=== PATIENT | female | born 1980 | race Caucasian/White ===

== ENCOUNTER 2017-07-06 12:15 | Outpatient (CLI) | payer BC | END 2017-07-06 12:16 | disposition home or self-care (01) | LOC: BICULT 12:15 | PROVIDERS: ATTEND Family Medicine | DX: Q83.1 Accessory breast (principal) | CPT/HCPCS: 76999; 77066; G0279 ==

== ENCOUNTER 2018-04-27 17:43 | Inpatient (IN) | payer BC ==
[2018-04-27] MEDS ORDERED: Dexamethasone 10 MG/ML VIAL ONE (18:31)
[2018-04-27] MEDS ORDERED: Ibuprofen 200 MG TAB ONE (18:31)
[2018-04-27] MEDS ORDERED: Sodium Chloride For Inhalation 0.9% 3 ML NEB ONE (18:35)
--- NOTE | 2018-04-27 18:59 | RAD ---
RADIOGRAPH CHEST 2 VIEWS: Date: 04/27/18 Time: 6:33 p.m. HISTORY: 38-year-old female with cough and fever. COMPARISON: None. FINDINGS: There is a small focal infiltrate in the right mid lung zone seen on the frontal review. It is near t he junction between the superior segment of right lower lobe and posterior segment of right upper lob e. The rest of the lungs are clear. No pleural effusion. Cardiomediastinal silhouette is normal. IMPRESSION: Right sided bronchopneumonia. JEREMIAH [] POS: JIN
[2018-04-27 19:38] LABS: #Basophils 0.1 thou/uL (0.0-0.2); #Monocytes 0.6 thou/uL (0.11-0.59); #Neutrophils 4.6 thou/uL (1.40-6.50); %Eosinophils 0.2 % (0.0-10.0); %Lymphocytes 16.2 % (21.0-51.0); %Monocytes 8.9 % (0.0-10.0); %Neutrophils 73.7 % (42.0-75.0); Hemoglobin 13.8 g/dL (12.0-16.0); Mean Corpuscular HGB CONC 33.6 g/dL (32.0-36.0); Mean Corpuscular Hemoglobin 29.4 pg (27.0-31.0); Mean Corpuscular Volume 87.5 fL (78.0-98.0); Mean Platelet Volume 9.2 fL (7.4-10.4); Platelet Count 139 thou/uL (130-400); Red Blood Cell (RBC) Count 4.68 mill/uL (4.20-5.40); White Blood Cell (WBC) Count 6.3 thou/uL (4.8-10.8)
[2018-04-27 19:42] LABS: ALT (SGPT) 54 U/L (8-55); AST (SGOT) 39 U/L (5-34); Albumin 4.3 g/dL (3.5-5.0); Alkaline Phosphatase 80 U/L (40-150); Anion Gap 14 mmol/L (10-20); BUN (Urea Nitrogen) 10 mg/dL (7.0-18.7); Bilirubin, Total 0.6 mg/dL (0.2-1.2); Calc. Creatinine Clearance 0 mL/min (70-130); Calcium 9.6 mg/dL (7.8-10.44); Carbon Dioxide 22 mmol/L (22-29); Chloride 105 mmol/L (98-107); Estimated GFR-MDRD 84; Globulin 3.3 g/dL (2.4-3.5); Glucose 118 mg/dL (70-105); Potassium 3.8 mmol/L (3.5-5.1); Protein, Total 7.6 g/dL (6.0-8.3); Sodium 137 mmol/L (136-145)
[2018-04-27] MEDS ORDERED: Ibuprofen 200 MG TAB PO PRN (21:47)
[2018-04-27] MEDS ORDERED: Acetaminophen 325 MG TAB PO PRN (21:50)
[2018-04-27] MEDS ORDERED: Calcium Carbonate 500 MG ChewTAB PO PRN (21:50)
[2018-04-27] MEDS ORDERED: Eucerin (Mineral Oil/Petrolatum,White) 30 gm Jar TOP PRN (21:51)
[2018-04-27] MEDS ORDERED: Chloraseptic Spray 180 ml Bottle PO PRN (21:51)
[2018-04-27] MEDS ORDERED: Mag-Al 1200 mg/1200 mg/30 ML UDCUP PO PRN (21:51)
[2018-04-27] MEDS ORDERED: guaiFENesin ER 600 MG TAB PO SCH (22:00)
--- NOTE | 2018-04-27 22:09 | HP ---
PRIMARY CARE PHYSICIAN: Kayley Sanchez MD CHIEF COMPLAINT: Cough with low-grade fever of 3 weeks' duration. HISTORY OF PRESENT ILLNESS: The patient is a 38-year-old female who presented to the emergency room with above complaints. Approximately 3 weeks ago, the patient started having cough along with fever that progressively got worse. She completed 10 days of doxycycline. After completion of doxycycline, her symptoms got worse. She was evaluated by primary care physician 2 days ago and was started on Omnicef. She continued to have fever up to 100 degrees Fahrenheit. Overall, she started feeling worse. She denies significant shortness of breath or wheezing. The cough was mainly dry with scanty production. She denies recent immobilization travel. She denies any sick contacts, nausea, vomiting, diarrhea, or skin rash. She is allergic to amoxicillin which causes rash. No dysuria, hematuria, or urgency reported. PAST MEDICAL HISTORY: Seasonal allergies. PAST SURGICAL HISTORY: 1. in 2009 and 2013. 2. [place] teeth extraction in 1998. ALLERGIES: THE PATIENT IS ALLERGIC TO AMOXICILLIN WITH CAUSES RASH. CURRENT HOME MEDICATIONS: Reviewed with the patient and none. FAMILY HISTORY: Father with heart disease. Mother with hypertension. SOCIAL HISTORY: The patient currently lives at home. Denies any smoking, alcohol, or drug use. She is . REVIEW OF SYSTEMS: All other review of systems reviewed and were found negative. PHYSICAL EXAMINATION: VITAL SIGNS: In the emergency room, showed temperature 100.6, respirations of 18, pulse rate of 95 with blood pressure of 114/77, O2 saturation 95% on room air. GENERAL: A 38-year-old female in mild distress due to repeated coughing. HEENT: Head; atraumatic, normocephalic. Sclerae anicteric. Bilateral tonsillar exudate noted. No other oral lesion except for minimal erythema over the pharynx. NECK: Supple. No JVD. No carotid bruit. LUNGS: Showed scattered rhonchi with rales at the right base, otherwise the lungs were symmetrical. No wheezing or rhonchi in other areas noted. No accessory muscle use. HEART: S1, S2 present. Regular rate and rhythm. No murmur, rubs, or gallops appreciated. ABDOMEN: Soft bowel sounds present. No rebound or guarding. EXTREMITIES: No edema or calf tenderness. NEUROLOGY: Grossly nonfocal. Moves all 4 extremities. PSYCHIATRY: Alert, awake, and oriented x3. SKIN: Warm and dry. LYMPH NODES: No palpable lymph nodes in the neck. PERIPHERAL VASCULAR: Radial pulses are palpable bilaterally. MUSCULOSKELETAL: No joint swelling or tenderness. LABORATORY FINDINGS: WBC 6.3 with neutrophil of 73.7%, lymphocyte of 16.2, hemoglobin 13.8. Chemistry showed sodium 137, potassium 3.8, chloride 105, bicarb 22, BUN 10, creatinine 0.7. Chest x-ray by my review showed bronchopneumonia at the right base. Strep screen was negative. Cultures are pending. Influenza testing is pending at this time. IMPRESSION: 1. Sepsis due to right-sided pneumonia due to ?Pneumococcus with acute tonsillitis. 2. Seasonal allergies. 3. Chronic kidney disease, stage 2. 4. Dehydration. PLAN: 1. The patient will be monitored on the medical floor. We will start her on ceftriaxone with azithromycin. We will consult Infectious Disease due to penicillin allergy. We will add Mucinex and other p.r.n. medications. Gentle IV hydration. 2. The patient will require 2 to 3 days for stabilization. Will check Strep Pneumonia urinary antigen. Job ID: [id number] [facility]
[2018-04-27] MEDS: Sodium Chloride 0.9% 1,000 ML IV SCH (23:05)
[2018-04-27] MEDS: Benzonatate 100 MG CAP PO PRN (23:05)
[2018-04-27] MEDS: Azithromycin 500 MG in Sodium Chloride 0.9% 250 ML 250 ML IVPB SCH (23:06)
[2018-04-27] MEDS: cefTRIAXone\\ROCEPHIN 2 GM in Sodium Chloride 0.9% 100 ML IVPB SCH (23:06)
[2018-04-27] MEDS: Cepastat Lozenges 1 LOZ PO PRN (23:10)
[2018-04-28 00:21] VITALS: BMI 30.1
[2018-04-28] MEDS: guaiFENesin ER 600 MG TAB PO SCH ×2 (08:19→21:34)
--- NOTE | 2018-04-28 09:55 | PDOC.PN ---
- Subjective Encounter Start Date: 04/28/18 Encounter Start Time: 08:45 -: old records requested/rev pt has cough, no chest pain, no fever Patient seen and examined. No new complaints. No overnight events - Objective Resuscitation Status - Order Detail: 04/27/18 21:50 Resuscitation Status Routine Resuscitation Status: FULL: Full Resuscitation MAR Reviewed: Yes Vital Signs & Weight: Vital Signs (12 hours) Temp Pulse Resp BP Pulse Ox 04/28/18 08:11 98.3 F 72 18 113/72 95 04/28/18 04:00 98.3 F 90 16 107/67 96 04/28/18 00:16 94 L 04/28/18 00:00 98.3 F 77 18 99/64 92 L Weight Weight 197 lb 15.602 oz I&O: 04/27/18 04/28/18 04/29/18 05:59 06:59 06:59 Intake Total Balance Result Diagrams: 04/27/18 19:20 04/27/18 19:20 Radiology Reviewed by me: Yes (chest xray reviewed) Phys Exam - Physical Examination Constitutional: NAD HEENT: PERRLA, moist MMs, sclera anicteric Neck: no JVD, supple Respiratory: no wheezing, no rales, no rhonchi Cardiovascular: RRR, no significant murmur, no rub Gastrointestinal: soft, non-tender, no distention, positive bowel sounds Musculoskeletal: no edema, pulses present Neurological: non-focal, normal sensation, moves all 4 limbs Lymphatic: no nodes Psychiatric: normal affect, A&O x 3 Skin: no rash, normal turgor Dx/Plan (1) Community acquired bacterial pneumonia Code(s): J15.9 - UNSPECIFIED BACTERIAL PNEUMONIA Status: Acute (2) Obesity (BMI 30.0-34.9) Code(s): E66.9 - OBESITY, UNSPECIFIED Status: Chronic - Plan cont current plan of care, continue antibiotics * continue rocephin and azithromycin * continue mucinex * continue IVF * add solumderol 20 mg IV q 8 hourly * medication reviewed as below * symptomatic treatment. * ID consulted Review of Systems - Review of Systems Eyes: negative: Pain, Vision Change, Conjunctivae Inflammation, Eyelid Inflammation, Redness, Other ENT: negative: Ear Pain, Ear Discharge, Nose Pain, Nose Discharge, Nose Congestion, Mouth Pain, Mouth Swelling, Throat Pain, Throat Swelling, Other Respiratory: Cough. negative: Dry, Shortness of Breath, Hemoptysis, SOB with Excertion, Pleuritic Pain, Sputum, Wheezing Cardiovascular: negative: chest pain, palpitations, orthopnea, paroxysmal nocturnal dyspnea, edema, light headedness, other Gastrointestinal: negative: Nausea, Vomiting, Abdominal Pain, Diarrhea, Constipation, Melena, Hematochezia, Other Genitourinary: negative: Dysuria, Frequency, Incontinence, Hematuria, Retention , Other Musculoskeletal: negative: Neck Pain, Shoulder Pain, Arm Pain, Back Pain, Hand Pain, Leg Pain, Foot Pain, Other Skin: negative: Rash, Lesions, Michael, Bruising, Other - Medications/Allergies Allergies/Adverse Reactions: Allergies Allergy/AdvReac Type Severity Reaction Status Date / Time amoxicillin [Amoxicillin] Allergy Rash Verified 04/28/18 00:38 Medications: Current Medications Acetaminophen (Tylenol) 650 mg PO Q4H PRN PRN Reason: Headache/Fever/Mild Pain (1-3) Al Hydroxide/Mg Hydroxide (Maalox) 30 ml PO Q6H PRN PRN Reason: Heartburn or Indigestion Albuterol/Ipratropium (Duoneb) 3 ml NEB [id number] PRN PRN Reason: SOB &/or Wheezing Benzonatate (Tessalon) 100 mg PO TID PRN PRN Reason: Cough Last Admin: 04/27/18 23:05 Dose: 100 mg Calcium Carbonate (Tums) 1,000 mg PO Q4H PRN PRN Reason: Heartburn or Indigestion Guaifenesin (Mucinex) 600 mg PO Q12HR [facility] Last Admin: 04/28/18 08:19 Dose: 600 mg Azithromycin 500 mg/ Sodium (Chloride) 250 mls @ 250 mls/hr IVPB Q24HR [facility] Last Admin: 04/27/18 23:06 Dose: 250 mls Ceftriaxone Sodium 2 gm/ (Sodium Chloride) 100 mls @ 200 mls/hr IVPB Q24HR [facility] Last Admin: 04/27/18 23:06 Dose: 100 mls Sodium Chloride (Normal Saline 0.9%) 1,000 mls @ 75 mls/hr IV .[id number] [facility] Stop: 04/29/18 22:01 Last Admin: 04/27/18 23:05 Dose: 1,000 mls Ibuprofen (Motrin) 400 mg PO Q6H PRN PRN Reason: Pain Mineral Oil/White Petrolatum (Eucerin Cream) 0 gm TOP BIDPRN PRN PRN Reason: Dry Skin Phenol (Chloraseptic [place] 180 Ml Bot) 0 ml PO BIDPRN PRN PRN Reason: Sore Throat Sodium Chloride (Flush - Normal Saline) 10 ml IVF Q12HR [facility] Last Admin: 04/28/18 08:20 Dose: Not Given Sodium Chloride (Flush - Normal Saline) 10 ml IVF PRN PRN PRN Reason: Saline Flush Throat Lozenges (Cepastat Lozenges) 1 francisco PO Q2H PRN PRN Reason: Sore Throat Last Admin: 04/27/18 23:10 Dose: 1 francisco
[2018-04-28] MEDS: methylPREDNISolone Sod Succ 40 MG VIAL IVP SCH ×2 (10:39→17:16)
[2018-04-28 10:40] LABS: Strep pneumo Urine Ag NEGATIVE (NEGATIVE)
[2018-04-28] MEDS: Cepastat Lozenges 1 LOZ PO PRN (10:40)
[2018-04-28] MEDS: Sodium Chloride 0.9% 1,000 ML IV SCH (11:26)
--- NOTE | 2018-04-28 16:11 | CT ---
CT SINUSES WITHOUT CONTRAST: Indication: Sinusitis without improvement. Comparison: None. FINDINGS: Paranasal sinuses are clear. Osteomeatal units are patent. Visualized nasal cavity appears within nor mal limits. The osseous nasal septum is midline. No acute osseous abnormality is evident. Mastoid air cells are clear. Visualized intracranial contents are within normal limits. Visualized orbits appear s within normal limits. IMPRESSION: No significant paranasal sinus disease. POS: [facility]
--- NOTE | 2018-04-28 21:32 | CON ---
DATE OF CONSULTATION: 04/28/2018 REASON FOR CONSULTATION: Respiratory symptoms. HISTORY OF PRESENT ILLNESS: A 38-year-old has a history of chronic rhinitis and since March has had worsening of her upper respiratory symptoms with cough, has been managed with various outpatient interventions and mostly with oral antimicrobials and more recently was started on topical steroids for nasal area plus antihistamines, but for the past few days has noticed worsening of cough and some low-grade temperature elevation, some headaches, nasal obstipation, some hearing issues. No visual symptoms change. Mild sore throat. No dental pain. No back pain. No chest pain. No dyspnea. No abdominal pain or diarrhea. No genitourinary symptoms. No joint symptoms. No skin disorder. No neurological symptoms. MEDICAL HISTORY: Rhinitis/allergies. PAST SURGICAL HISTORY: and wisdom teeth extraction. ALLERGIES: AMOXICILLIN WITH RASH. FAMILY HISTORY: Hypertension, heart disease. 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 Never smoker. No drug use. . CURRENT MEDICATIONS: 1. Maalox. 2. DuoNeb. 3. Azithromycin. 4. Tessalon. 5. Ceftriaxone. 6. Medrol. PHYSICAL EXAMINATION: VITAL SIGNS: T-max 99, blood pressure 113/72, pulse 72, respirations 18, O2 saturation 95%. SKIN: Peripheral IV access. No Rodriguez catheter. LYMPHATICS: No lymphadenopathy. HEENT: Ocular movements, conjugate. Obstructed nasal passages, moderately to markedly obstructed. Oral cavity is normal. Teeth are in very good shape. NECK: Supple. No jugular vein distention. No carotid bruits. LUNGS: With scattered expiratory rhonchi and wheezing. No crackles. HEART: Normal. ABDOMEN: Soft, not distended or tender. No ascites. No bladder distention. EXTREMITIES: No joint inflammatory activity, moves extremities equally. NEURO: Cognitive function appears to be intact. LABORATORY DATA: CBC is pretty unremarkable except for mild lymphocytopenia. Chemistry, normal except for mild elevation of glucose and AST of 39. Serology with strep pneumo antigen negative. Microbiology with group A strep screen negative. Influenza A and B antigen test negative. Chest x-ray with small focal infiltrate, right mid lung zone. ASSESSMENT: Allergic rhinitis or perennial rhinitis with now exacerbation of cough, some low-grade temperature elevation, abnormal chest x-ray with subsegmental infiltrate in the right lung. DISCUSSION: Differential diagnosis includes chronic rhinosinusitis with superimposed acute sinusitis and now respiratory tract infection versus viral infection with sinusitis and lower respiratory tract involvement. Check respiratory virus PCR panel. Continue antimicrobials. Consider switch transition to inhaled steroids instead of intravenous steroids. Atypical mycobacterial pathogens, nocardiosis, and Cryptococcus neoformans would be another concern, but those are much less likely in her situation at this point in time. Autoimmune syndromes, malignancy unlikely. Aspiration of foreign body unlikely. We will check a CT of sinus to complete workup and check also immunoglobulin quantitation to rule out common variable immune deficiency. Job ID: [id number]
[2018-04-28] MEDS: Benzonatate 100 MG CAP PO PRN (21:35)
[2018-04-28] MEDS: cefTRIAXone\\ROCEPHIN 2 GM in Sodium Chloride 0.9% 100 ML IVPB SCH (21:41)
[2018-04-28] MEDS ORDERED: guaiFENesin/DM ER PO SCH (21:45)
[2018-04-28] MEDS: Azithromycin 500 MG in Sodium Chloride 0.9% 250 ML 250 ML IVPB SCH (23:20)
[2018-04-29] MEDS: methylPREDNISolone Sod Succ 40 MG VIAL IVP SCH ×3 (01:30→17:17)
[2018-04-29] MEDS: guaiFENesin/DM ER PO SCH ×2 (08:43→20:03)
[2018-04-29 09:19] LABS: #Lymphocytes 1.1 thou/uL (1.20-3.40); #Monocytes 0.5 thou/uL (0.11-0.59); #Neutrophils 4.2 thou/uL (1.40-6.50); %Basophils 0.2 % (0.0-1.0); %Eosinophils 0.3 % (0.0-10.0); %Lymphocytes 19.3 % (21.0-51.0); %Neutrophils 72.2 % (42.0-75.0); Mean Corpuscular HGB CONC 32.9 g/dL (32.0-36.0); Mean Corpuscular Hemoglobin 29.4 pg (27.0-31.0); Mean Corpuscular Volume 89.3 fL (78.0-98.0); Mean Platelet Volume 9.6 fL (7.4-10.4); Platelet Count 198 thou/uL (130-400); RBC Distribution Width 11.2 % (11.5-14.5); Red Blood Cell (RBC) Count 4.78 mill/uL (4.20-5.40); White Blood Cell (WBC) Count 5.9 thou/uL (4.8-10.8)
[2018-04-29 09:40] LABS: ALT (SGPT) 40 U/L (8-55); AST (SGOT) 28 U/L (5-34); Albumin 4.1 g/dL (3.5-5.0); Alkaline Phosphatase 68 U/L (40-150); Anion Gap 13 mmol/L (10-20); BUN (Urea Nitrogen) 9 mg/dL (7.0-18.7); Bilirubin, Total 0.3 mg/dL (0.2-1.2); CRP (Inflammatory) 1.96 mg/dL (= or < 0.5); Calc. Creatinine Clearance 161 mL/min (70-130); Calcium 9.4 mg/dL (7.8-10.44); Carbon Dioxide 21 mmol/L (22-29); Chloride 108 mmol/L (98-107); Estimated GFR-MDRD Greater than 90; Globulin 3.3 g/dL (2.4-3.5); Glucose 122 mg/dL (70-105); Potassium 4.1 mmol/L (3.5-5.1); Protein, Total 7.4 g/dL (6.0-8.3); Sodium 138 mmol/L (136-145)
--- NOTE | 2018-04-29 09:41 | RAD ---
CHEST 2 VIEWS: HISTORY: Followup pneumonia. COMPARISON: 04/27/2018. FINDINGS: Small patchy area of alveolar parenchymal density in the right mid lung zone and right perihilar layne on, evidence for pneumonia showing some improvement from the prior 04/27 study. No new process. IMPRESSION: Minimally improving alveolar parenchymal process in the right mid lung zone, evidence for improving r ight middle lung zone pneumonia. Consider another followup examination in several weeks to document complete clearing. POS: [facility]
--- NOTE | 2018-04-29 11:22 | PDOC.PN ---
- Subjective Encounter Start Date: 04/29/18 Encounter Start Time: 09:30 Patient seen and examined. No new complaints. No overnight events - Objective Resuscitation Status - Order Detail: 04/27/18 21:50 Resuscitation Status Routine Resuscitation Status: FULL: Full Resuscitation MAR Reviewed: Yes Vital Signs & Weight: Vital Signs (12 hours) Temp Pulse Resp BP Pulse Ox 04/29/18 08:52 98.2 F 57 L 16 99/61 95 04/29/18 02:53 93 L Weight Weight 197 lb 15.602 oz I&O: 04/28/18 04/29/18 04/30/18 06:59 06:59 06:59 Intake Total 970 Balance 970 Result Diagrams: 04/29/18 08:51 04/29/18 08:51 Phys Exam - Physical Examination Constitutional: NAD HEENT: PERRLA, moist MMs, sclera anicteric Neck: no JVD, supple Respiratory: no wheezing, no rales, no rhonchi Cardiovascular: RRR, no significant murmur, no rub Gastrointestinal: soft, non-tender, no distention, positive bowel sounds Musculoskeletal: no edema, pulses present Neurological: non-focal, normal sensation, moves all 4 limbs Lymphatic: no nodes Psychiatric: normal affect, A&O x 3 Skin: no rash, normal turgor Dx/Plan (1) Community acquired bacterial pneumonia Code(s): J15.9 - UNSPECIFIED BACTERIAL PNEUMONIA Status: Acute (2) Obesity (BMI 30.0-34.9) Code(s): E66.9 - OBESITY, UNSPECIFIED Status: Chronic - Plan cont current plan of care, continue antibiotics * continue one more day antibiotics * will plan for discharge tomorrow * medication reviewed as below * symptomatic treatment. Review of Systems - Review of Systems ENT: negative: Ear Pain, Ear Discharge, Nose Pain, Nose Discharge, Nose Congestion, Mouth Pain, Mouth Swelling, Throat Pain, Throat Swelling, Other Respiratory: Cough. negative: Dry, Shortness of Breath, Hemoptysis, SOB with Excertion, Pleuritic Pain, Sputum, Wheezing Cardiovascular: negative: chest pain, palpitations, orthopnea, paroxysmal nocturnal dyspnea, edema, light headedness, other Gastrointestinal: negative: Nausea, Vomiting, Abdominal Pain, Diarrhea, Constipation, Melena, Hematochezia, Other Genitourinary: negative: Dysuria, Frequency, Incontinence, Hematuria, Retention , Other Musculoskeletal: negative: Neck Pain, Shoulder Pain, Arm Pain, Back Pain, Hand Pain, Leg Pain, Foot Pain, Other Skin: negative: Rash, Lesions, Michael, Bruising, Other - Medications/Allergies Allergies/Adverse Reactions: Allergies Allergy/AdvReac Type Severity Reaction Status Date / Time amoxicillin [Amoxicillin] Allergy Rash Verified 04/28/18 00:38 Medications: Current Medications Acetaminophen (Tylenol) 650 mg PO Q4H PRN PRN Reason: Headache/Fever/Mild Pain (1-3) Al Hydroxide/Mg Hydroxide (Maalox) 30 ml PO Q6H PRN PRN Reason: Heartburn or Indigestion Albuterol/Ipratropium (Duoneb) 3 ml NEB [id number] PRN PRN Reason: SOB &/or Wheezing Benzonatate (Tessalon) 100 mg PO TID PRN PRN Reason: Cough Last Admin: 04/28/18 21:35 Dose: 100 mg Calcium Carbonate (Tums) 1,000 mg PO Q4H PRN PRN Reason: Heartburn or Indigestion Guaifenesin/Dextromethorphan (Mucinex Dm) 1 tab PO Q12HR [facility] Last Admin: 04/29/18 08:43 Dose: 1 tab Azithromycin 500 mg/ Sodium (Chloride) 250 mls @ 250 mls/hr IVPB Q24HR [facility] Last Admin: 04/28/18 23:20 Dose: 250 mls Ceftriaxone Sodium 2 gm/ (Sodium Chloride) 100 mls @ 200 mls/hr IVPB Q24HR [facility] Last Admin: 04/28/18 21:41 Dose: 100 mls Ibuprofen (Motrin) 400 mg PO Q6H PRN PRN Reason: Pain Methylprednisolone Sodium Succinate (Solu-Medrol) 20 mg IVP 0200,1000,1800 [facility] Last Admin: 04/29/18 08:43 Dose: 20 mg Mineral Oil/White Petrolatum (Eucerin Cream) 0 gm TOP BIDPRN PRN PRN Reason: Dry Skin Phenol (Chloraseptic [place] 180 Ml Bot) 0 ml PO BIDPRN PRN PRN Reason: Sore Throat Sodium Chloride (Flush - Normal Saline) 10 ml IVF Q12HR [facility] Last Admin: 04/29/18 08:45 Dose: 10 ml Sodium Chloride (Flush - Normal Saline) 10 ml IVF PRN PRN PRN Reason: Saline Flush Throat Lozenges (Cepastat Lozenges) 1 francisco PO Q2H PRN PRN Reason: Sore Throat Last Admin: 04/28/18 10:40 Dose: 1 francisco
[2018-04-29] MEDS: cefTRIAXone\\ROCEPHIN 2 GM in Sodium Chloride 0.9% 100 ML IVPB SCH (20:03)
[2018-04-29] MEDS: Azithromycin 500 MG in Sodium Chloride 0.9% 250 ML 250 ML IVPB SCH (21:32)
[2018-04-30] MEDS: methylPREDNISolone Sod Succ 40 MG VIAL IVP SCH ×2 (02:01→09:51)
[2018-04-30 08:10] VITALS: BP 112/74; TEMP 98.2
[2018-04-30] MEDS: guaiFENesin/DM ER PO SCH (08:27)
--- NOTE | 2018-04-30 09:49 | PDOC.PN ---
- Subjective Encounter Start Date: 04/30/18 Encounter Start Time: 07:20 Patient seen and examined. No new complaints. No overnight events - Objective Resuscitation Status - Order Detail: 04/27/18 21:50 Resuscitation Status Routine Resuscitation Status: FULL: Full Resuscitation MAR Reviewed: Yes Vital Signs & Weight: Vital Signs (12 hours) Temp Pulse Resp BP BP Pulse Ox 04/30/18 08:00 98.2 F 56 L 18 112/74 97 04/30/18 00:33 99.6 F 79 20 136/63 92 L Weight Weight 197 lb 15.602 oz I&O: 04/29/18 04/30/18 05/01/18 06:59 06:59 06:59 Intake Total 970 360 Balance 970 360 Result Diagrams: 04/29/18 08:51 04/29/18 08:51 Phys Exam - Physical Examination Constitutional: NAD HEENT: PERRLA, moist MMs, sclera anicteric Neck: no JVD, supple Respiratory: no wheezing, no rales, no rhonchi Cardiovascular: RRR, no significant murmur, no rub Gastrointestinal: soft, non-tender, no distention, positive bowel sounds Musculoskeletal: no edema, pulses present Neurological: non-focal, normal sensation, moves all 4 limbs Lymphatic: no nodes Psychiatric: normal affect, A&O x 3 Skin: no rash, normal turgor Dx/Plan (1) Community acquired bacterial pneumonia Code(s): J15.9 - UNSPECIFIED BACTERIAL PNEUMONIA Status: Acute (2) Obesity (BMI 30.0-34.9) Code(s): E66.9 - OBESITY, UNSPECIFIED Status: Chronic - Plan cont current plan of care * medication reviewed as below * symptomatic treatment * see discharge nicholas. Review of Systems - Review of Systems ENT: negative: Ear Pain, Ear Discharge, Nose Pain, Nose Discharge, Nose Congestion, Mouth Pain, Mouth Swelling, Throat Pain, Throat Swelling, Other Respiratory: negative: Cough, Dry, Shortness of Breath, Hemoptysis, SOB with Excertion, Pleuritic Pain, Sputum, Wheezing Cardiovascular: negative: chest pain, palpitations, orthopnea, paroxysmal nocturnal dyspnea, edema, light headedness, other Gastrointestinal: negative: Nausea, Vomiting, Abdominal Pain, Diarrhea, Constipation, Melena, Hematochezia, Other Genitourinary: negative: Dysuria, Frequency, Incontinence, Hematuria, Retention , Other Musculoskeletal: negative: Neck Pain, Shoulder Pain, Arm Pain, Back Pain, Hand Pain, Leg Pain, Foot Pain, Other - Medications/Allergies Allergies/Adverse Reactions: Allergies Allergy/AdvReac Type Severity Reaction Status Date / Time amoxicillin [Amoxicillin] Allergy Rash Verified 04/28/18 00:38 Medications: Current Medications Acetaminophen (Tylenol) 650 mg PO Q4H PRN PRN Reason: Headache/Fever/Mild Pain (1-3) Al Hydroxide/Mg Hydroxide (Maalox) 30 ml PO Q6H PRN PRN Reason: Heartburn or Indigestion Albuterol/Ipratropium (Duoneb) 3 ml NEB [id number] PRN PRN Reason: SOB &/or Wheezing Benzonatate (Tessalon) 100 mg PO TID PRN PRN Reason: Cough Last Admin: 04/28/18 21:35 Dose: 100 mg Calcium Carbonate (Tums) 1,000 mg PO Q4H PRN PRN Reason: Heartburn or Indigestion Guaifenesin/Dextromethorphan (Mucinex Dm) 1 tab PO Q12HR [facility] Last Admin: 04/30/18 08:27 Dose: 1 tab Azithromycin 500 mg/ Sodium (Chloride) 250 mls @ 250 mls/hr IVPB Q24HR [facility] Last Admin: 04/29/18 21:32 Dose: 250 mls Ceftriaxone Sodium 2 gm/ (Sodium Chloride) 100 mls @ 200 mls/hr IVPB Q24HR [facility] Last Admin: 04/29/18 20:03 Dose: 100 mls Ibuprofen (Motrin) 400 mg PO Q6H PRN PRN Reason: Pain Methylprednisolone Sodium Succinate (Solu-Medrol) 20 mg IVP 0200,1000,1800 [facility] Last Admin: 04/30/18 02:01 Dose: 20 mg Mineral Oil/White Petrolatum (Eucerin Cream) 0 gm TOP BIDPRN PRN PRN Reason: Dry Skin Phenol (Chloraseptic [place] 180 Ml Bot) 0 ml PO BIDPRN PRN PRN Reason: Sore Throat Sodium Chloride (Flush - Normal Saline) 10 ml IVF Q12HR [facility] Last Admin: 04/30/18 08:30 Dose: 10 ml Sodium Chloride (Flush - Normal Saline) 10 ml IVF PRN PRN PRN Reason: Saline Flush Throat Lozenges (Cepastat Lozenges) 1 francisco PO Q2H PRN PRN Reason: Sore Throat Last Admin: 04/28/18 10:40 Dose: 1 francisco
--- NOTE | 2018-04-30 10:27 | DIS ---
DATE OF ADMISSION: 04/27/2018 DATE OF DISCHARGE: 04/30/2018 PRIMARY CARE PHYSICIAN: Kayley Sanchez MD. DISCHARGE DISPOSITION: Home. PRIMARY DISCHARGE DIAGNOSES: 1. Community-acquired bacterial pneumonia, likely streptococcal. 2. Adenovirus infection. SECONDARY DISCHARGE DIAGNOSIS: Obesity with BMI 30. PRIMARY PROCEDURE/OPERATION: None. RADIOLOGICAL INVESTIGATION: Chest x-ray, sinus CT scan. SIGNIFICANT LABORATORY DATA: WBC 5.9, hemoglobin 14.0, and platelet 198. Sodium 138, creatinine 0.67. CRP 1.96. Urine Streptococcus pneumoniae antigen negative. Respiratory virus panel showed adenovirus positive. DISCHARGE MEDICATIONS: 1. Levofloxacin 750 mg daily for 7 days. 2. Prednisone 20 mg p.o. daily for 7 days. 3. Mucinex 600 mg twice daily for 7 days. CONTRAINDICATION: None. CODE STATUS: Full code. INPATIENT GARBAGE TRUCK HELPER: Dr. Conte. TEST RESULTS PENDING ON DISCHARGE: None. ALLERGIES: AMOXICILLIN. DISCHARGE PLAN: Posthospital, the patient will follow up with primary care physician in 1 or 2 weeks. Primary care physician requested to repeat chest x-ray in 2 to 3 weeks to see resolution of pneumonia. HOSPITAL COURSE: A 38-year-old female with above-mentioned medical problem, who was admitted by Dr. Micheal Flores. Please see his H and P for further detail. The patient was having long history of upper respiratory infection, which gradually progressed to pneumonia. She was treated on an outpatient basis by primary care physician with Omnicef without any clinical improvement. The patient required admission. She was treated with Rocephin and azithromycin while in hospital. On discharge, we changed to monotherapy with levofloxacin. The patient had a chest x-ray on the repeat as a followup, which showed improvement. Sinus CT scan was negative. Dr. Conte was following while in hospital. The patient is advised to follow up with primary care physician and repeat chest x-ray in 2 to 3 weeks to see resolution of pneumonia. Overall, the patient is doing very well. She is asymptomatic. She is afebrile, tolerating p.o. well, ambulatory on room air. The patient is seen and examined at the bedside today. Please see my progress note from today for further detail. Job ID: [id number]
--- NOTE | 2018-04-30 15:33 | PQF ---
DATE: 04-30-18 ATTN: DR. ALBERTO BUCIO Please exercise your independent, professional judgment in responding to the clarification form. Clinical indicators are provided on the bottom of this form for your review Please check appropriate box(s) to clarify if the following diagnosis has been ruled in or ruled out: SEPSIS [ X ] Ruled in diagnosis [X ] Continue to treat [ X] Resolved [ ] Ruled out diagnosis [ ] Other diagnosis [ ] Unable to determine In addition, please specify: Present on Admission (POA): [X ] Yes [ ] No [ ] Unable to determine For continuity of documentation, please document condition throughout progress notes and discharge summary. Thank You. CLINICAL INDICATORS - SIGNS / SYMPTOMS / LABS H&P: SEPSIS DUE TO RIGHT SIDED PNEUMONIA DUE TO ? PNEUMOCOCCUS WITH ACUTE TONSILLITIS ER: TEMP: 100.6, 100.3, 100.2, COUGH FOR 3 WEEKS FOR WHICH WAS GIVEN DOXYCYCLINE, FEVER 2 DAYS AGO, SORE THROAT, EAR PAIN, RHINORRHEA, NASAL CONGESTION CRP: 04-29-18: 1.96 RISKS: H&P: SEPSIS DUE TO RIGHT SIDED PNEUMONIA DUE TO ? PNEUMOCOCCUS WITH ACUTE TONSILLITIS ER: COMMUNITY ACQUIRED PNEUMONIA FAILED OUTPATIENT THERAPY TREATMENTS: ER: LEVAQUIN IV, MAR: 04-27-18: ZITHROMAX, SOLUMEDROL (This form is maintained as a part of the permanent medical record) 2014 [employer] All Rights Reserved JUANY [email or web address] Office: [phone] [facility]
== END 2018-04-30 11:11 | disposition home or self-care (01) | DRG 871 ==
LOC: SCSER 17:43 → T4-A 20:20
PROVIDERS: ADMIT Internal Medicine; ATTEND Internal Medicine
DX: A40.9 Streptococcal sepsis, unspecified (principal); J15.4 Pneumonia due to other streptococci; J03.90 Acute tonsillitis, unspecified; N18.2 Chronic kidney disease, stage 2 (mild); E86.0 Dehydration; B34.0 Adenovirus infection, unspecified; J30.2 Other seasonal allergic rhinitis; E66.9 Obesity, unspecified; Z98.890 Other specified postprocedural states; Z88.1 Allergy status to other antibiotic agents; Z68.30 Body mass index [BMI] 30.0-30.9, adult
CPT/HCPCS: 36415; 71046; 80053; 82785; 85025; 86140; 87081; 87430; 87633; 87798; 87804; 87899; 94640; 96365; J0456; J0696; J1100; J1956; J2920; J7050

== ENCOUNTER 2018-05-15 15:07 | Outpatient (CLI) | payer BC ==
--- NOTE | 2018-05-15 15:28 | RAD ---
TWO VIEWS OF THE CHEST: COMPARISON: 04/29/2018. HISTORY: Pneumonia. FINDINGS: Two views of the chest show normal sized cardiomediastinal silhouette. There is no evidence of consol idation, mass, or pleural effusion. The bones are unremarkable. IMPRESSION: No evidence of acute cardiopulmonary disease. POS: [facility]
== END 2018-05-15 15:08 | disposition home or self-care (01) ==
LOC: SCSRAD 15:07
PROVIDERS: ATTEND Family Medicine
DX: J18.9 Pneumonia, unspecified organism (principal)
CPT/HCPCS: 71046

== ENCOUNTER 2019-03-10 17:30 | Outpatient (CLI) | payer BC | END 2019-03-10 17:31 | disposition home or self-care (01) | LOC: SLEEPLAB 17:30 | PROVIDERS: ATTEND Internal Medicine | DX: G47.33 Obstructive sleep apnea (adult) (pediatric) (principal); R53.83 Other fatigue; K21.9 Gastro-esophageal reflux disease without esophagitis; R06.83 Snoring; R35.1 Nocturia | CPT/HCPCS: 95806 ==

== ENCOUNTER 2019-04-14 10:08 | Inpatient (IN) | payer BC ==
[2019-04-14 10:47] VITALS: BMI 37.7
[2019-04-14] MEDS ORDERED: hydrALAZINE 20 MG/ML VIAL SLOW IVP PRN ×2 (10:56→14:48)
[2019-04-14] MEDS ORDERED: Promethazine HCl 25 MG/ML VIAL IM PRN ×3 (10:56→14:48)
[2019-04-14] MEDS ORDERED: Ondansetron PF 4 MG/2 ML Vial IVP PRN ×3 (10:56→14:48)
[2019-04-14] MEDS: Lactated Ringer's 1,000 ML IV SCH ×2 (10:56→11:44)
[2019-04-14 11:14] LABS: Hemoglobin 11.9 g/dL (12.0-16.0); Mean Corpuscular HGB CONC 34.3 g/dL (32.0-36.0); Mean Corpuscular Hemoglobin 29.6 pg (27.0-31.0); Mean Corpuscular Volume 86.1 fL (78.0-98.0); Mean Platelet Volume 8.9 fL (7.4-10.4); Platelet Count 142 thou/uL (130-400); RBC Distribution Width 12.4 % (11.5-14.5); Red Blood Cell (RBC) Count 4.03 mill/uL (4.20-5.40); White Blood Cell (WBC) Count 13.3 thou/uL (4.8-10.8)
[2019-04-14] MEDS ORDERED: Bicitra 30 ML UDCUP ONE (11:24)
[2019-04-14] MEDS ORDERED: MORPHINE 5 MG/10 ML PF VIAL ONE (11:37)
[2019-04-14] MEDS ORDERED: PHENYLEPHRINE-NS 100 MCG/ML 10 ML SYRINGE ONE (11:37)
[2019-04-14] MEDS ORDERED: Oxytocin 10 UNITS/ML VIAL ONE (11:37)
[2019-04-14] MEDS ORDERED: EPHEDRINE 25 MG/5 ML SYRINGE ONE (11:38)
[2019-04-14] MEDS ORDERED: CEFAZOLIN 2 GM in Premix Bag 1 BAG IVPB SCH (11:45)
[2019-04-14] MEDS ORDERED: Bicitra 30 ML UDCUP PO SCH (11:45)
--- NOTE | 2019-04-14 11:46 | PDOC.LDHP ---
Labor and Delivery H&P Chief complaint: scheduled section HPI: 39yo at 39w2d by LMP here for RCS. No complaints Current gestational age (weeks): 39 Due date: 04/19/19 Dating criteria: last menstrual period Grav: 6 Para: 2 OB History Details: Prior DIU at 17w Current complications: none Abnormal US findings: No Past Medical History: denies Current medications: pre-lise vitamins Previous surgical history: low tranverse CS Allergies/Adverse Reactions: Allergies Allergy/AdvReac Type Severity Reaction Status Date / Time amoxicillin [Amoxicillin] Allergy Rash Verified 04/14/19 10:41 Social history: none - Physical Exam Vital signs reviewed and normal: yes General: NAD Heart: RRR Lungs: CTAB Abdomen: gravid Extremeties: no edema FHT: category 1 Malone contractions every: none - OB Labs RH: positive Antibody Screen: negative HIV: negative RPR: negative HEPSAg: negative 1 hour GCT: negative GBS: negative Urine drug screen: negative Rubella: immune - Assessment L&D Assessment: scheduled repeat section - Plan Plan: admit to L&D, to OR for section, informed consent obtained, anesthesia consult for pain management
[2019-04-14 11:55] LABS: Syphilis Antibody Nonreactive (Nonreactive); Syphilis Antibody Index 0.12 S/CO (<1.00 Non-Reactive)
[2019-04-14 11:56] LABS: HBSAg Index 0.29 S/CO (0-0.99); Hep B Surf Ag Non-Reactive S/CO (NonReactive)
[2019-04-14] MEDS ORDERED: diphenhydrAMINE 50 MG/ML VIAL IVP PRN (12:35)
[2019-04-14] MEDS ORDERED: Naloxone HCl 0.4 mg/ml Vial IV PRN (12:35)
[2019-04-14] MEDS ORDERED: Promethazine HCl 25 MG SUPP PR PRN (12:35)
[2019-04-14] MEDS ORDERED: Naloxone HCl 0.4 mg/ml Vial IVP PRN ×2 (12:35)
[2019-04-14] MEDS ORDERED: Communication Order-Pharmacy FS SCH (12:45)
[2019-04-14] MEDS ORDERED: Ketorolac Tromethamine 30 MG/ML VIAL ONE (14:32)
[2019-04-14] MEDS: Ketorolac Tromethamine 30 MG/ML VIAL IVP PRN ×2 (14:36→21:37)
[2019-04-14] MEDS ORDERED: Simethicone Chewable 80 MG TAB PO PRN (14:48)
[2019-04-14] MEDS ORDERED: Lanolin Ointment 7 GM TUBE TOP PRN (14:48)
[2019-04-14] MEDS ORDERED: Adacel (T-DAP) 0.5 ML SYRINGE IM ONE (14:48)
[2019-04-14] MEDS ORDERED: diphenhydrAMINE 25 MG CAP PO PRN (14:48)
[2019-04-14] MEDS ORDERED: Bisacodyl 10 MG SUPP PR PRN (14:48)
[2019-04-14] MEDS ORDERED: Acetaminophen 325 MG TAB PO PRN (14:48)
[2019-04-14] MEDS ORDERED: Morphine 2 MG/ML SYRINGE SLOW IVP PRN (16:43)
[2019-04-14] MEDS ORDERED: Morphine 2 MG/ML SYRINGE SLOW IVP SCH (16:45)
[2019-04-14] MEDS: Ferrous Sulfate 325 MG TAB PO SCH (20:46)
[2019-04-14] MEDS: Docusate Calcium (SURFAK) 240 MG CAP PO SCH (21:34)
[2019-04-15] MEDS: HYDROcodone/Acetaminophen 5/325 mg Tablet PO PRN ×4 (03:02→20:09)
[2019-04-15] MEDS: Ibuprofen 800 MG TAB PO SCH ×3 (05:34→21:08)
[2019-04-15 06:05] LABS: Hemoglobin 12.2 g/dL (12.0-16.0); Mean Corpuscular HGB CONC 34.1 g/dL (32.0-36.0); Mean Corpuscular Hemoglobin 29.7 pg (27.0-31.0); Mean Corpuscular Volume 87.1 fL (78.0-98.0); Mean Platelet Volume 9.1 fL (7.4-10.4); Platelet Count 128 thou/uL (130-400); RBC Distribution Width 12.5 % (11.5-14.5); Red Blood Cell (RBC) Count 4.09 mill/uL (4.20-5.40); White Blood Cell (WBC) Count 14.5 thou/uL (4.8-10.8)
[2019-04-15] MEDS: Ferrous Sulfate 325 MG TAB PO SCH ×2 (07:59→20:13)
[2019-04-15] MEDS: Docusate Calcium (SURFAK) 240 MG CAP PO SCH ×2 (08:14→20:13)
[2019-04-15] MEDS: Prenatal Vitamin 1 TAB PO SCH (08:14)
--- NOTE | 2019-04-15 16:29 | PDOC.PP ---
Post Progress Note Post Day #: 1 PO intake tolerated: yes Flatus: yes Ambulation: yes Vital Signs (12 hours) Temp Pulse Resp BP Pulse Ox 04/15/19 12:43 97.9 F 79 18 108/61 99 04/15/19 08:14 95 04/15/19 08:05 98.1 F 76 15 101/56 L 95 04/15/19 05:33 98.3 F 75 14 122/57 L 96 Weight Weight 248 lb - Physical Examination General: NAD Respiratory: non-labored breathing Abdominal: no distention, appropriately TTP Fundus firm & at: umb Skin: CS incision dry & intact, no rash Neurological: no gross focal deficits Psychiatric: normal affect Result Diagrams: 04/15/19 05:46 Additional Labs: Post Labs Blood Type B POSITIVE 04/14/19 11:01 Hep Bs Antigen Non-Reactive S/CO (NonReactive) 04/14/19 11:01 - Assessment/Plan POD1 s/p RCS VSSAF Hgb wnl 12.2 postop, meeting appropriate milestones Cont postop care, home tomorrow
--- NOTE | 2019-04-15 16:30 | PDOC.OPDEL ---
OB Operative/Delivery Note Delivery Dr/Surgeon: Pattie Assist: Eva Pre-Delivery Diagnosis: scheduled section Procedure/Post Delivery Dx: repeat low transverse CS Weeks gestation: 39 Anesthesia: spinal - Findings A Sex: male Weight: 9 lb 6 oz - 1 min: 7 - 5 min: 9 - Additional Findings/Plan Placenta delivered: spontaneous findings: low transverse hysterotomy without extension, normal uterus, normal tubes, normal ovaries Estimated blood loss: 500 Post delivery plan: routine recovery
[2019-04-16] MEDS: HYDROcodone/Acetaminophen 5/325 mg Tablet PO PRN ×2 (01:14→08:29)
[2019-04-16] MEDS: Ibuprofen 800 MG TAB PO SCH (05:20)
[2019-04-16 08:15] VITALS: BP 124/73; TEMP 98.1
[2019-04-16] MEDS: Ferrous Sulfate 325 MG TAB PO SCH (08:22)
[2019-04-16] MEDS: Prenatal Vitamin 1 TAB PO SCH (08:23)
[2019-04-16] MEDS: Docusate Calcium (SURFAK) 240 MG CAP PO SCH (08:23)
--- NOTE | 2019-04-16 08:26 | PDOC.PP ---
Post Progress Note Post Day #: 2 PO intake tolerated: yes Flatus: yes Ambulation: yes Vital Signs (12 hours) Temp Pulse Resp BP Pulse Ox 04/16/19 08:14 98.1 F 78 20 124/73 97 04/16/19 05:19 98.3 F 78 14 118/63 78 L 04/16/19 00:17 98.8 F 75 14 117/66 98 Weight Weight 248 lb - Physical Examination General: NAD Respiratory: non-labored breathing Abdominal: + bowel sounds, lochia, no distention, appropriately TTP Fundus firm & at: 1 cm below umbilicus Extremities: negative homans (B) Skin: CS incision dry & intact, no rash Neurological: no gross focal deficits Psychiatric: A&Ox3, normal affect Result Diagrams: 04/15/19 05:46 Additional Labs: Post Labs Blood Type B POSITIVE 04/14/19 11:01 Hep Bs Antigen Non-Reactive S/CO (NonReactive) 04/14/19 11:01 (1) delivery delivered Code(s): O82 - ENCOUNTER FOR DELIVERY WITHOUT INDICATION Status: Acute - Assessment/Plan POD2 s/p RCS VSSAF Hgb wnl postop. Pain well controlled She is meeting appropriate milestones well. Cont postop care. She will follow up for nurse visit in 2 weeks and [address] Blankenship has sent out rx for home meds.
== END 2019-04-16 11:32 | disposition home or self-care (01) | DRG 788 ==
LOC: L&D 10:08 → 3SW 15:42
PROVIDERS: ADMIT Student in an Organized Health Care Education/Training Program; ATTEND Student in an Organized Health Care Education/Training Program
PROC: 10D00Z1 Extraction of Products of Conception, Low, Open Approach (ICD-10-PCS; principal; 2019-04-15)
DX: O34.211 Maternal care for low transverse scar from previous cesarean delivery (principal); Z3A.39 39 weeks gestation of pregnancy; Z37.0 Single live birth
CPT/HCPCS: 36415; 51702; 85027; 86780; 86850; 86900; 86901; 87340; J0690; J1200; J1885; J2270; J2274; J2590

== ENCOUNTER 2020-11-18 12:54 | Outpatient (CLI) | payer BC | END 2020-11-18 12:55 | disposition home or self-care (01) | LOC: BICRAD 12:54 | PROVIDERS: ATTEND Internal Medicine | DX: M54.2 Cervicalgia (principal); M47.812 Spondylosis without myelopathy or radiculopathy, cervical region | CPT/HCPCS: 72040 ==

== ENCOUNTER 2020-12-13 12:01 | Outpatient (CLI) | payer BC | END 2020-12-13 12:02 | disposition home or self-care (01) | LOC: BICMAMMO 12:01 | PROVIDERS: ATTEND Internal Medicine | DX: Z12.31 Encounter for screening mammogram for malignant neoplasm of breast (principal) | CPT/HCPCS: 77063; 77067 ==

== ENCOUNTER 2021-06-21 16:00 | Outpatient (CLI) | payer BC | END 2021-06-21 16:01 | disposition home or self-care (01) | LOC: SLEEPLAB 16:00 | PROVIDERS: ATTEND Internal Medicine | DX: G47.33 Obstructive sleep apnea (adult) (pediatric) (principal); F32.9 Major depressive disorder, single episode, unspecified; E66.9 Obesity, unspecified; R06.83 Snoring; K21.9 Gastro-esophageal reflux disease without esophagitis; Z68.35 Body mass index [BMI] 35.0-35.9, adult | CPT/HCPCS: 95810 ==